=== PATIENT | male | born 1955 | race Caucasian/White ===

== ENCOUNTER 2021-05-21 08:49 | Outpatient (CLI) | payer MEDICARE, OTHER ==
--- NOTE | 2021-05-22 08:26 | SLEEP CARE CONSULTATION ---
Information from patient questionnaire entered by Nirmala Gonzalez. I have reviewed and concur with the information entered by Nirmala Gonzalez. This document represents the service I personally performed and the decisions made by me, Miguelina Milligan MD, [facility]. History of Present Illness Service Date and Time: 05/21/2021 0849 Reason for Visit: New patient Additional HPI information: I had the pleasure of seeing Mr. Faibranks today regarding obstructive sleep apnea-hypopnea. As you know, he is a 66 year old gentleman who was diagnosed with the sleep-disordered breathing in 2011 at [facility] in [place], [place]. The AHI was 10.4 and brianda oxygen saturation 86%. He has [employer] UroSensStation System One autoCPAP. He is not sure of the setting but Veronica reports 5 - 15 cmH20. He uses it every night and all night. He is aware of the recall. If he does not use his CPAP, he suffers from excessive daytime sleepiness. Social History The patient's occupation is a RETIRED. Patient is and lives in [place] . Allergies and Home Medications Drug allergies reviewed: Yes Home medication list reviewed: Yes Impression and Plan IMPRESSION: 1. Obstructive Sleep Apnea-Hypopnea Syndrome, mild. The patient has good treatment compliance. The efficacy of the treatment is unknown because we do not have the compliance/efficacy report. The pressure setting is also not available. We will contact Veronica for the setting. If unsuccessful, he will bring in his device. Because the CPAP is now older than the useful life of 5 years and also is being recalled, I will order the patient a new one and make it an autoCPAP set at the same pressure setting.. Plan: 1. Contact Veronica for his device setting. 2. Prescription made for an autoCPAP, heated humidifier, and related supplies. He would like to use [place]. 3. Avoid alcohol, sedative and muscle relaxant around bedtime. 4. Return for follow up after one month of using the new CPAP. Follow up with Sleep Care in: 1-2 months Visit Type: In Office Time Spent with Patient (minutes): 15 Provider Statement: I spent 100% of the Face to Face Visit with the patient with greater than 50% spent counseling the patient and coordination of care.
== END 2021-05-21 08:50 | disposition home or self-care (01) ==
LOC: SC 08:49
PROVIDERS: ATTEND Internal Medicine Pulmonary Disease
DX: G47.33 Obstructive sleep apnea (adult) (pediatric) (principal)
CPT/HCPCS: 99202; G0463; 99212